=== PATIENT | female | born 1950 | race African-American/Black ===

== ENCOUNTER 2022-01-14 13:20 | Emergency (ER) | payer OTHER ==
[~2022-01-14] VITALS: Ht 167.6 cm; Wt 66.0 kg
[2022-01-14 14:57] LABS: CHLORIDE 95 mEq/L (98-107)
[2022-01-14 15:00] LABS: HEMATOCRIT. 28.6 % (36.0-48.0); HEMOGLOBIN. 9.7 g/dL (12.0-16.0); MEAN CORPUSCULAR HEMOGLOBIN 31.7 pg (28.0-32.0); MEAN CORPUSCULAR VOLUME 93.7 fL (81.0-99.0); PLATELET 222 x1000/uL (130-400); RED BLOOD CELL COUNT 3.06 mill/uL (4.2-5.4); RED CELL DISTRIBUTION WIDTH 17.7 % (11.6-14.6)
[2022-01-14] MEDS ORDERED: ASPIRIN 81MG TABLET PO ONE (15:15)
[2022-01-14] MEDS ORDERED: PREDNISONE 20MG TABLET PO ONE (15:15)
[2022-01-14] MEDS ORDERED: SODIUM CHLORIDE 0.9% 1,000 ML IV ONE (15:15)
[2022-01-14 15:38] LABS: PLATELET ESTIMATE NORMAL
[2022-01-14 19:57] LABS: CLARITY URINE CLEAR (CLEAR); COLOR URINE YELLOW (YELLOW); KETONES URINE NEGATIVE (NEGATIVE); LEUKOCYTE ESTERASE URINE TRACE (NEGATIVE); NITRITE URINE NEGATIVE (NEGATIVE); OCCULT BLOOD URINE 3+ (NEGATIVE); PH URINE 5.5 (4.5-8.0); PROTEIN URINE NEGATIVE (NEGATIVE); SPECIFIC GRAVITY URINE 1.016 (1.005-1.030); UROBILINOGEN URINE 0.2 E.U./dL (0.2-1.0)
[2022-01-14] MEDS ORDERED: IOHEXOL-350 100 ML BOTTLE ONE (23:20)
[2022-01-15] MEDS ORDERED: AZITHROMYCIN 500 MG TABLET PO SCH (01:00)
[2022-01-15] MEDS ORDERED: CEFTRIAXONE 1 G PREMIX 50 ML IV SCH (01:00)
[2022-01-15 04:45] VITALS: BP 121/56
== END 2022-01-15 04:45 | disposition short-term general hospital (02) ==
LOC: ER 13:37 → EDBEDREQ 15:18 → ER 01-15 04:45 → CANBEDREQ 01-15 07:14
DX: J18.9 Pneumonia, unspecified organism (principal); R06.03 Acute respiratory distress; I20.0 Unstable angina; R00.0 Tachycardia, unspecified; J44.1 Chronic obstructive pulmonary disease with (acute) exacerbation; D64.9 Anemia, unspecified; Z85.3 Personal history of malignant neoplasm of breast; Z87.891 Personal history of nicotine dependence; Z20.822 Contact with and (suspected) exposure to COVID-19
CPT/HCPCS: 36415; 71045; 71275; 80053; 81003; 83880; 84484; 85025; 85379; 87040; 87426; 93005; 96361; 96365; 99291; J0696; J7030; J7512; Q9967

== ENCOUNTER 2022-08-16 12:40 | Emergency (ER) | payer OTHER ==
[~2022-08-16] VITALS: Ht 165.1 cm; Wt 70.0 kg
[2022-08-16 14:10] LABS: BASOPHILS % 0.8 % (0.0-2.0); EOSINOPHILS % 0.2 % (0.0-5.0); HEMATOCRIT. 40.9 % (36.0-48.0); HEMOGLOBIN. 13.7 g/dL (12.0-16.0); LYMPHOCYTES % 11.8 % (20.0-50.0); MEAN CORPUSCULAR HEMOGLOBIN 32.9 pg (28.0-32.0); MEAN CORPUSCULAR VOLUME 98.1 fL (81.0-99.0); MEAN PLATELET VOLUME 8.5 fl (7.4-10.4); MONOCYTES % 9.4 % (2.0-8.0); NEUTROPHILS % 77.8 % (40.0-76.0); PLATELET 258 x1000/uL (130-400); RED BLOOD CELL COUNT 4.17 mill/uL (4.2-5.4); RED CELL DISTRIBUTION WIDTH 14.4 % (11.6-14.6)
[2022-08-16 14:26] LABS: BG BASE EXCESS 0.6 mmol/L (-2.0-2.0); BG CARBOXYHEMOGLOBIN 2.1 % (0.5-1.5); BG DEOXYHEMOGLOBIN 4.1 % (0.0-5.0); BG FRACTION INSPIRED OXYGEN 21; BG HCO3 ACT 23.4 mmol/L (22.0-26.0); BG METHEMOGLOBIN 0.4 % (0.0-1.5); BG OXYGEN SATURATION 95.8 % (92.0-98.5); BG OXYHEMOGLOBIN 93.4 % (94.0-97.0); BG PCO2 32.1 mmHg (35.0-45.0); BG PO2 76.7 mmHg (75.0-100.0); BG SAMPLE SITE RIGHT BRACHIAL; BG TOTAL HEMOGLOBIN 13.8 g/dL (12.0-18.0); BG VENT MODE ROOM AIR
[2022-08-16 14:26] LABS: CHLORIDE 94 mEq/L (98-107)
[2022-08-16 18:06] LABS: T4 FREE 0.32 ng/dL (0.76-1.46)
[2022-08-16] MEDS ORDERED: AMLODIPINE 5MG TABLET PO ONE (18:15)
[2022-08-16 18:28] VITALS: BP 157/96
== END 2022-08-16 19:10 | disposition short-term general hospital (02) ==
LOC: ER 12:40 → CANBEDREQ 16:26 → ER 19:10
DX: R06.02 Shortness of breath (principal); R53.1 Weakness; E87.1 Hypo-osmolality and hyponatremia; R79.89 Other specified abnormal findings of blood chemistry; Z20.822 Contact with and (suspected) exposure to COVID-19; E07.9 Disorder of thyroid, unspecified; I10 Essential (primary) hypertension
CPT/HCPCS: 36415; 36600; 71045; 80053; 82375; 82805; 83880; 84439; 84443; 84481; 84484; 85025; 87426; 87804; 93005; 99285; C9803

== ENCOUNTER 2023-01-08 14:08 | Emergency (ER) | payer OTHER ==
[2023-01-08 14:13] VITALS: BP 168/70
[2023-01-08 15:37] LABS: BASOPHILS % 0.5 % (0.0-2.0); EOSINOPHILS % 0.1 % (0.0-5.0); HEMATOCRIT. 28.1 % (36.0-48.0); HEMOGLOBIN. 8.6 g/dL (12.0-16.0); LYMPHOCYTES % 14.9 % (20.0-50.0); MEAN CORPUSCULAR HEMOGLOBIN 24.3 pg (28.0-32.0); MEAN CORPUSCULAR VOLUME 79.1 fL (81.0-99.0); MEAN PLATELET VOLUME 7.9 fl (7.4-10.4); NEUTROPHILS % 75.5 % (40.0-76.0); PLATELET 540 x1000/uL (130-400); RED BLOOD CELL COUNT 3.55 mill/uL (4.2-5.4); RED CELL DISTRIBUTION WIDTH 19.8 % (11.6-14.6)
[2023-01-08 15:48] LABS: CHLORIDE 98 mEq/L (98-107)
== END 2023-01-08 19:35 | disposition left against medical advice (07) ==
LOC: ER 14:43
DX: R06.02 Shortness of breath (principal); Z53.21 Procedure and treatment not carried out due to patient leaving prior to being seen by health care provider
CPT/HCPCS: 36415; 71045; 80053; 83605; 85025; 99281